=== PATIENT | male | born 1975 | race American Indian/Alaskan Native ===

== ENCOUNTER 2017-09-12 11:04 | Emergency (ER) | payer SELFPAY ==
[2017-09-12] MEDS ORDERED: NARCAN 0.4 MG/1 ML IV ONE (11:25)
[2017-09-12 11:26] VITALS: BP 134/83
[2017-09-12] MEDS ORDERED: HALDOL ONE (11:36)
[2017-09-12] MEDS ORDERED: HALDOL IM ONE (11:37)
[2017-09-12] MEDS ORDERED: NARCAN 2 MG/2 ML IM ONE (11:38)
--- NOTE | 2017-09-12 11:49 | Emergency Department Report ---
ED General Adult HPI - General Chief complaint: Altered Mental Status Stated complaint: AMS Time Seen by Provider: 09/12/17 11:20 Source: EMS Mode of arrival: Stretcher Limitations: Altered Mental Status - History of Present Illness Initial comments: 41-year-old male was found altered at the [facility] after a possible fall he did arrive awake and alert but disoriented and confused he did have a stable airway. No stridor or drooling he was following some commands but was confused with altered mental status. Family did arrive on the scene. C-collar and workup for altered mental status was instituted on arrival. Accu-Chek was normal. At this point time patient became restless became ambulatory and decided he did not want to be seen at this hospital., was ambulating but combative and refusing care, security was notified and pt eloped further history was unobtainable -: unknown Associated Symptoms: denies other symptoms ED Review of Systems ROS: Stated complaint: AMS Other details as noted in HPI Comment: Unobtainable due to pts medical conditions Constitutional: denies: fever ED Past Medical Hx - Social History Smoking Status: Unknown if ever smoked Substance Use Type: None ED Physical Exam - General Limitations: Altered Mental Status General appearance: alert, anxious - Head Head exam: Present: atraumatic, normocephalic - Eye Eye exam: Present: PERRL, EOMI - ENT ENT exam: Present: normal exam, normal orophraynx, other (. Airway no stridor no drooling) - Neck Neck exam: Present: other (uncooperative for neck exam however he was moving the neck he was to be placed in a cervical collar infused that) - Respiratory Respiratory exam: Present: normal lung sounds bilaterally, other (no respiratory distress) - GI/Abdominal GI/Abdominal exam: Present: soft. Absent: distended, tenderness, guarding, rebound, rigid, mass, pulsatile mass - Back Exam Back exam: Present: normal inspection - Neurological Exam Neurological exam: Present: CN II-XII intact, other (disoriented but awake and alert with stable airway). Absent: motor sensory deficit - Skin Skin exam: Present: other (multiple macules all over the body) ED Course Vital Signs 09/12/17 11:20 Temperature 97.8 F Pulse Rate 95 H Respiratory 18 Rate Blood Pressure 134/83 O2 Sat by Pulse 96 Oximetry ED Medical Decision Making - EKG Data -: EKG Interpreted by Me EKG shows normal: sinus rhythm - EKG Data 09/12/17 11:50 Normal sinus rhythm no acute ischemic change - Medical Decision Making Patient became combative security was notified patient then eloped.2 Family members did present on the scene one was the [id number] was the mother the mother did state that she was the next of kin at this point time she did request a f/u weakness or 2 and forced care because she says he's not ussually like this. At this point on the patient did elope at this point time the sister said we are not being treated here weren't taken to [facility], at this point time the mother agreed. The patient does get all his care [facility] including possible HIV status although this was later refused by the mother. He was afebrile he was alert and oriented but confused ,a stable airway he was ambulatory he did elope. Family states that we're just going to [facility]. refuess further care at this time. We didelect at that point in time to except an AMA by the mother was informed of risks of taking him to [facility] including worsening medical condition and disability loss of use and function as well as car accident. They did verbalize understanding and did consent to take him to [facility]. With this point elected to let them go AMA. We did not institute forced care at this facility. Patient was confused but had eloped. Prior to starting work up here. Critical care attestation.: If time is entered above; I have spent that time in minutes in the direct care of this critically ill patient, excluding procedure time. ED Disposition Clinical Impression: Confusion Disposition: DC-07 LEFT AGAINST MED ADVICE Is pt being admited?: No Condition: Stable Forms: AMA Form Time of Disposition: 11:54
--- NOTE | 2017-09-12 12:03 | XRay Report ---
AP CHEST: HISTORY: Altered mental status AP view of the chest demonstrates a normal mediastinal and cardiac contour with clear lungs and normal bony and soft tissue structures. IMPRESSION: Unremarkable AP chest.
== END 2017-09-12 11:44 | disposition left against medical advice (07) ==
LOC: ED 11:04
DX: R41.0 Disorientation, unspecified (principal); R53.1 Weakness
CPT/HCPCS: 71045; 82962; 93005; 93010; 99284; J1630; J2310

== ENCOUNTER 2021-12-04 14:08 | Emergency (ER) | payer MEDICAID ==
[2021-12-04 15:32] LABS: INR 1.08 (0.87-1.13)
[2021-12-04 15:33] LABS: Partial Thromboplastin Time 39.1 Sec. (24.2-36.6)
[2021-12-04 15:34] LABS: Alanine Aminotransferase 13 units/L (7-56); Albumin 3.3 g/dL (3.9-5); BUN/Creatinine Ratio 20; Blood Urea Nitrogen 20 mg/dL (9-20); Calcium 8.4 mg/dL (8.4-10.2); Hemolysis Index 3
[2021-12-04 15:40] LABS: Hematocrit 36.4 % (35.5-45.6); Mean Corpuscular HGB Conc 33 % (32-34); Mean Corpuscular Volume 93 fl (84-94); Red Cell Distribution Width 19.7 % (13.2-15.2)
[2021-12-04 15:41] LABS: Platelet Count 181 K/mm3 (140-440)
--- NOTE | 2021-12-04 15:47 | XRay Report ---
CHEST 2 VIEWS INDICATION: cp sob. COMPARISON: 10/05/2019 FINDINGS: SUPPORT DEVICES: None. HEART: Within normal limits. LUNGS/PLEURA: Mild residual patchy multifocal airspace disease with no pleural effusion. No pneumoth orax. ADDITIONAL FINDINGS: None. IMPRESSION: 1. Lung findings as above. Signer Name: Frederic Gibson MD Signed: 12/04/2021 3:43 PM Workstation Name: [id number]
[2021-12-04 16:59] LABS: Total Cells Counted 100
[2021-12-04 17:01] LABS: Platelet Estimate Consistent w Auto
--- NOTE | 2021-12-04 20:24 | Emergency Department Report ---
ED General Adult HPI - General Chief complaint: Dyspnea/Respdistress Stated complaint: SHORT OF BREATH Time Seen by Provider: 12/04/21 19:48 Source: patient Mode of arrival: Ambulatory Limitations: No Limitations - History of Present Illness Initial comments: Is a 45-year-old male with hx of COPD, HTN, HIV, Leukopenia, blind ,and ashtma who presents for sob for the past 2 months patient states diagnostic bilateral lower lobe pneumonia symptoms are exacerbated by viral exposure. Symptoms are relieved by albuterol inhaler. Patient's primary concern today is productive cough states "I do not want to get pneumonia again" pt states symptoms are at baseline at this time. - Related Data Home Medications Medication Instructions Recorded Confirmed Last Taken Atropine Sulfate 1 drop OD BID 10/07/21 10/07/21 Unknown Bictegrav/Emtricit/Tenofov Ala 1 tab PO DAILY 10/07/21 10/07/21 Unknown [Biktarvy 50-200-25 mg (Nf)] Dorzolamide HCl/Timolol Maleat 1 drop OS BID 10/07/21 10/07/21 Unknown [Dorzolamide-Timolol Eye Drops] Fluticasone [Flonase] 1 spray NS QDAY 10/07/21 10/07/21 Unknown Hydrocortisone [Hydrocortisone 2 gm TP BID 10/07/21 10/07/21 Unknown 2.5% OINT] Latanoprost 0.005% [Xalatan 0.005%] 1 drop OS QPM 10/07/21 10/07/21 Unknown prednisoLONE acetate [Prednisolone 1 drop OU BID 10/07/21 10/07/21 Unknown Acetate] Previous Rx's Medication Instructions Recorded Last Taken Type Albuterol Mdi (or & Nicu Only) 2 puff IH QID PRN #8.5 gram 12/04/21 Unknown Rx [ProAir HFA Inhaler] Amoxicillin/K Clav Tab [Augmentin 1 tab PO BID 7 Days #14 tab 12/04/21 Unknown Rx 875 mg] Potassium Chloride [K-Dur] 20 meq PO QDAY 7 Days #7 tab 12/04/21 Unknown Rx Umeclidinium Brm/Vilanterol Tr 1 puff IH QDAY #1 each 12/04/21 Unknown Rx [Anoro Ellipta 62.5-25 Mcg INH] levoFLOXacin [Levaquin TAB] 500 mg PO QDAY 7 Days #7 tablet NS 12/04/21 Unknown Rx predniSONE [Deltasone] 20 mg PO QDAY 7 Days #7 tab NS 12/04/21 Unknown Rx Allergies Allergy/AdvReac Type Severity Reaction Status Date / Time sulfamethoxazole Allergy Unknown Verified 12/04/21 14:19 [From Bactrim] trimethoprim [From Bactrim] Allergy Unknown Verified 12/04/21 14:19 ED Review of Systems ROS: Stated complaint: SHORT OF BREATH Other details as noted in HPI Constitutional: denies: chills, fever ENT: denies: ear pain, throat pain Respiratory: cough, shortness of breath, wheezing Cardiovascular: denies: chest pain, palpitations Endocrine: no symptoms reported Gastrointestinal: denies: abdominal pain, nausea, diarrhea Genitourinary: denies: urgency, dysuria Musculoskeletal: denies: back pain, joint swelling, arthralgia Skin: denies: rash, lesions Neurological: denies: headache, weakness, paresthesias Psychiatric: denies: anxiety, depression Hematological/Lymphatic: denies: easy bleeding, easy bruising ED Past Medical Hx - Past Medical History Hx Asthma: Yes Hx COPD: Yes Hx HIV: Yes Additional medical history: HIV, allergies - Social History Smoking Status: Never Smoker - Medications Home Medications: Home Medications Medication Instructions Recorded Confirmed Last Taken Type Atropine Sulfate 1 drop OD BID 10/07/21 10/07/21 Unknown History Bictegrav/Emtricit/Tenofov Ala 1 tab PO DAILY 10/07/21 10/07/21 Unknown History [Biktarvy 50-200-25 mg (Nf)] Dorzolamide HCl/Timolol Maleat 1 drop OS BID 10/07/21 10/07/21 Unknown History [Dorzolamide-Timolol Eye Drops] Fluticasone [Flonase] 1 spray NS QDAY 10/07/21 10/07/21 Unknown History Hydrocortisone [Hydrocortisone 2 gm TP BID 10/07/21 10/07/21 Unknown History 2.5% OINT] Latanoprost 0.005% [Xalatan 0.005%] 1 drop OS QPM 10/07/21 10/07/21 Unknown History prednisoLONE acetate [Prednisolone 1 drop OU BID 10/07/21 10/07/21 Unknown History Acetate] Albuterol Mdi (or & Nicu Only) 2 puff IH QID PRN #8.5 gram 12/04/21 Unknown Rx [ProAir HFA Inhaler] Amoxicillin/K Clav Tab [Augmentin 1 tab PO BID 7 Days #14 tab 12/04/21 Unknown Rx 875 mg] Potassium Chloride [K-Dur] 20 meq PO QDAY 7 Days #7 tab 12/04/21 Unknown Rx Umeclidinium Brm/Vilanterol Tr 1 puff IH QDAY #1 each 12/04/21 Unknown Rx [Anoro Ellipta 62.5-25 Mcg INH] levoFLOXacin [Levaquin TAB] 500 mg PO QDAY 7 Days #7 tablet NS 12/04/21 Unknown Rx predniSONE [Deltasone] 20 mg PO QDAY 7 Days #7 tab NS 12/04/21 Unknown Rx ED Physical Exam - General Limitations: No Limitations General appearance: alert, in no apparent distress - Head Head exam: Present: normocephalic, normal inspection - Eye Eye exam: Present: other (blind ) Pupils: Present: normal accommodation - ENT ENT exam: Present: normal orophraynx, mucous membranes moist, TM's normal bilaterally, normal external ear exam - Neck Neck exam: Present: normal inspection, full ROM. Absent: tenderness, lymphadenopathy - Respiratory Respiratory exam: Present: normal lung sounds bilaterally. Absent: respiratory distress, wheezes, rales, rhonchi, stridor, chest wall tenderness, prolonged expiratory - Cardiovascular Cardiovascular Exam: Present: regular rate, normal rhythm, normal heart sounds. Absent: systolic murmur, diastolic murmur, rubs, gallop - GI/Abdominal GI/Abdominal exam: Present: soft, normal bowel sounds. Absent: distended, tenderness, guarding, rebound, rigid, bruit, hernia - Rectal Rectal exam: Present: deferred - Extremities Exam Extremities exam: Present: normal inspection, full ROM, normal capillary refill. Absent: tenderness - Back Exam Back exam: Present: normal inspection, full ROM. Absent: CVA tenderness (R), CVA tenderness (L) - Neurological Exam Neurological exam: Present: alert, oriented X3, CN II-XII intact, normal gait, reflexes normal. Absent: motor sensory deficit - Expanded Neurological Exam Expanded Patient oriented to: Present: person, place, time Speech: Present: fluid speech Motor strength exam: RUE: 5, LUE: 5, RLE: 5, LLE: 5 Best Eye Response ([place]): (4) open spontaneously Best Motor Response ([place]ate): (6) obeys commands Best Verbal Response (Nate): (5) oriented Nate Total: 15 - Psychiatric Psychiatric exam: Present: normal affect, normal mood - Skin Skin exam: Present: warm, dry, intact, normal color. Absent: rash ED Course Vital Signs 12/04/21 14:17 Temperature 99 F Pulse Rate 116 H Respiratory 22 Rate Blood Pressure 113/71 [Left] O2 Sat by Pulse 96 Oximetry ED Medical Decision Making - Lab Data Result diagrams: 12/04/21 14:49 12/04/21 14:49 Labs 12/04/21 12/04/21 12/04/21 14:49 14:49 14:49 WBC 1.1 L* RBC 3.90 Hgb 12.0 Hct 36.4 MCV 93 MCH 31 MCHC 33 RDW 19.7 H Plt Count 181 Ogle % (Auto) Linen Keeper Add Manual Diff Complete Total Counted 100 Seg Neuts % (Manual) 65.0 Band Neutrophils % 0 Lymphocytes % (Manual) 17.0 Reactive Lymphs % (Man) 0 Monocytes % (Manual) 16.0 H Eosinophils % (Manual) 1.0 Basophils % (Manual) 1.0 Metamyelocytes % 0 Myelocytes % 0 Promyelocytes % 0 Blast Cells % 0 Nucleated RBC % Not Reportable Seg Neutrophils # Man 0.7 L Band Neutrophils # 0.0 Lymphocytes # (Manual) 0.2 L Abs React Lymphs (Man) 0.0 Monocytes # (Manual) 0.2 Eosinophils # (Manual) 0.0 Basophils # (Manual) 0.0 Metamyelocytes # 0.0 Myelocytes # 0.0 Promyelocytes # 0.0 Blast Cells # 0.0 WBC Morphology Not Reportable Hypersegmented Neuts Not Reportable Hyposegmented Neuts Not Reportable Hypogranular Neuts Not Reportable Smudge Cells Not Reportable Toxic Granulation Not Reportable Toxic Vacuolation Not Reportable Dohle Bodies Not Reportable Pelger-Huet Anomaly Not Reportable Ryan Rods Not Reportable Platelet Estimate Consistent w auto Clumped Platelets Not Reportable Plt Clumps, EDTA Not Reportable Large Platelets Not Reportable Giant Platelets Not Reportable Platelet Satelliting Not Reportable Plt Morphology Comment Not Reportable RBC Morphology Not Reportable Dimorphic RBCs Not Reportable Polychromasia Not Reportable Hypochromasia Not Reportable Poikilocytosis Not Reportable Anisocytosis Not Reportable Microcytosis Not Reportable Macrocytosis Not Reportable Spherocytes Not Reportable Pappenheimer Bodies Not Reportable Sickle Cells Not Reportable Target Cells Not Reportable Tear Drop Cells Not Reportable Ovalocytes Not Reportable Helmet Cells Not Reportable Hugo-Elida Bodies Not Reportable [place] Rings Not Reportable [place] Cells Not Reportable Bite Cells Not Reportable Crenated Cell Not Reportable Elliptocytes Not Reportable Acanthocytes (Spur) Not Reportable Rouleaux Not Reportable Hemoglobin C Crystals Not Reportable Schistocytes Not Reportable Malaria parasites Not Reportable Hari Bodies Not Reportable Hem Pathologist Commnt No PT 15.5 H INR 1.08 APTT 39.1 H Sodium 138 Potassium 3.3 L Chloride 106.6 Carbon Dioxide 17 L Anion Gap 18 BUN 20 Creatinine 1.0 Estimated GFR > 60 BUN/Creatinine Ratio 20 Glucose 101 H Calcium 8.4 Total Bilirubin 0.50 AST 29 ALT 13 Alkaline Phosphatase 78 Troponin T < 0.010 Total Protein 8.0 Albumin 3.3 L Albumin/Globulin Ratio 0.7 12/04/21 14:49 WBC RBC Hgb Hct MCV MCH MCHC RDW Plt Count Ogle % (Auto) Add Manual Diff Total Counted Seg Neuts % (Manual) Band Neutrophils % Lymphocytes % (Manual) Reactive Lymphs % (Man) Monocytes % (Manual) Eosinophils % (Manual) Basophils % (Manual) Metamyelocytes % Myelocytes % Promyelocytes % Blast Cells % Nucleated RBC % Seg Neutrophils # Man Band Neutrophils # Lymphocytes # (Manual) Abs React Lymphs (Man) Monocytes # (Manual) Eosinophils # (Manual) Basophils # (Manual) Metamyelocytes # Myelocytes # Promyelocytes # Blast Cells # WBC Morphology TNR Hypersegmented Neuts Hyposegmented Neuts Hypogranular Neuts Smudge Cells Toxic Granulation Toxic Vacuolation Dohle Bodies Pelger-Huet Anomaly Ryan Rods Platelet Estimate Clumped Platelets Plt Clumps, EDTA Large Platelets Giant Platelets Platelet Satelliting Plt Morphology Comment RBC Morphology Dimorphic RBCs Polychromasia Hypochromasia Poikilocytosis Anisocytosis Microcytosis Macrocytosis Spherocytes Pappenheimer Bodies Sickle Cells Target Cells Tear Drop Cells Ovalocytes Helmet Cells Hugo-Elida Bodies [place] Rings Hung Cells Bite Cells Crenated Cell Elliptocytes Acanthocytes (Spur) Rouleaux Hemoglobin C Crystals Schistocytes Malaria parasites Hari Bodies Hem Pathologist Commnt PT INR APTT Sodium Potassium Chloride Carbon Dioxide Anion Gap BUN Creatinine Estimated GFR BUN/Creatinine Ratio Glucose Calcium Total Bilirubin AST ALT Alkaline Phosphatase Troponin T Total Protein Albumin Albumin/Globulin Ratio - EKG Data EKG shows normal: sinus rhythm, axis, intervals, QRS complexes, ST-T waves Rate: normal - EKG Data When compared to previous EKG there are: no significant change Interpretation: no acute changes (Normal sinus rhythm no ST elevated KS interpreted by ED attending), LVH - Radiology Data Radiology results: report reviewed, image reviewed CHEST 2 VIEWS INDICATION: cp sob. COMPARISON: 10/05/2019 FINDINGS: SUPPORT DEVICES: None. HEART: Within normal limits. LUNGS/PLEURA: Mild residual patchy multifocal airspace disease with no pleural effusion. No pneumothorax. ADDITIONAL FINDINGS: None. IMPRESSION: 1. Lung findings as above. Signer Name: Frederic Gibson MD Signed: 12/04/2021 3:43 PM Workstation Name: [id number] Transcribed By: LIBRA Dictated By: Frederic Gibson MD Electronically Authenticated By: Frederic Gibson MD Signed Date/Time: 12/04/211542 DD/ 41 TD/TT: Print - Medical Decision Making Advises symptoms are improved there is no wheezing noted at this time Chest x- ray improved opacities, ekg NSR NSTEMI, noted persistent leukopenia however patient is on prednisone daily. Plan DC to home with prescription Levaquin, follow-up with pulmonology on Monday. Follow-up with primary care doctor on Monday. Return to the emergency department should symptoms worsen. Vital signs noted and improved patient with no acute distress patient is tolerating p.o. intake without symptoms. Zoila has all other medications in his possession at this time. Patient states breathing is to baseline. Critical care attestation.: If time is entered above; I have spent that time in minutes in the direct care of this critically ill patient, excluding procedure time. ED Disposition Clinical Impression: COPD (chronic obstructive pulmonary disease) Qualifiers: COPD type: chronic bronchitis Chronic bronchitis type: unspecified Qualified Code(s): J42 - Unspecified chronic bronchitis Asthma Qualifiers: Asthma severity: moderate Asthma persistence: persistent Asthma complication type: unspecified Qualified Code(s): J45.40 - Moderate persistent asthma, uncomplicated Disposition: 01 HOME / SELF CARE / HOMELESS Is pt being admited?: No Does the pt Need Aspirin: No Condition: Stable Instructions: Chronic Obstructive Pulmonary Disease Exacerbation, [id number], Asthma, Adult, [id number], Asthma (ED), Chronic Obstructive Pulmonary Disease (ED) Additional Instructions: Take medications as prescribed, follow-up with your sample preparation supervisor on Monday, follow-up with your primary care doctor on Monday, follow-up with infectious disease on Monday, return to the emergency department should symptoms worsen. Prescriptions: Umeclidinium Brm/Vilanterol Tr [Anoro Ellipta 62.5-25 Mcg INH] 1 puff IH QDAY #1 each Amoxicillin/K Clav Tab [Augmentin 875 mg] 1 tab PO BID 7 Days #14 tab predniSONE [Deltasone] 20 mg PO QDAY 7 Days #7 tab NS Potassium Chloride [K-Dur] 20 meq PO QDAY 7 Days #7 tab levoFLOXacin [Levaquin TAB] 500 mg PO QDAY 7 Days #7 tablet NS Albuterol Mdi (or & Nicu Only) [ProAir HFA Inhaler] 2 puff IH QID PRN #8.5 gram PRN Reason: Shortness Of Breath Referrals: NEIDA CLARKE MD [Staff Physician] - 3-5 Days AP LEARY MD [Staff Physician] - 3-5 Days ALIZA ANDUJAR MD [Staff Physician] - 3-5 Days Forms: Work/School Release Form(ED) Time of Disposition: 20:57
[2021-12-04 22:07] VITALS: BP 121/78
--- NOTE | 2021-12-06 10:16 | Electrocardiograph Report ---
[facility] Test Date: 2021-12-04 Test Time: 20:44:44 Pat Name: SUZY BARRERA Department: Room: Gender: M Exhibit Artist: RKOKU : 1975 Requested By: ANA WILSON Order Number: [id number] Reading MD: Kendall Bolden Measurements Intervals [place] Rate: 64 P: 48 ME: 183 QRS: -21 QRSD: 91 T: 16 QT: 447 QTc: 462 Interpretive Statements Sinus rhythm Probable left atrial enlargement Left ventricular hypertrophy Compared to ECG 10/04/2021 22:34:19 Sinus rate has slowed Electronically Signed On 12-06-2021 10:16:10 EDT by Kendall Bolden
== END 2021-12-04 22:00 | disposition home or self-care (01) ==
LOC: ED 14:08
DX: J44.9 Chronic obstructive pulmonary disease, unspecified (principal); J45.909 Unspecified asthma, uncomplicated; Z88.2 Allergy status to sulfonamides
CPT/HCPCS: 36415; 71046; 80053; 84484; 85007; 85025; 85610; 85730; 93005; 99283